=== PATIENT | male | born 1980 | race Caucasian/White ===

== ENCOUNTER → 2017-08-08 | Outpatient (CLI) | payer OTHER ==
[~2017-08-08] MED LIST: MISCCAP80 PO
[2017-08-08 18:03] LABS: ALBUMIN 4.2 gm/dl (3.4-5.0); ALT/SGPT 30 U/L (12-78); AST/SGOT 23 U/L (15-37); BLOOD UREA NITROGEN 20 mg/dl (7-18); CALCIUM 8.8 mg/dl (8.5-10.1); CARBON DIOXIDE 31 mmol/L (21-32); CREATININE 0.95 mg/dl (0.60-1.40); GLUCOSE 85 mg/dl (70-99); POTASSIUM 4.2 mmol/L (3.5-5.1); SODIUM 141 mmol/L (136-145)
[2017-08-08 18:06] LABS: ALKALINE PHOSPHATASE 72 U/L (45-117); TOTAL PROTEIN 7.3 gm/dl (6.4-8.2)
== END | disposition home or self-care (01) ==
LOC: C.LAB1850 16:51
PROVIDERS: ATTEND Neuromusculoskeletal Medicine & OMM
DX: R59.1 Generalized enlarged lymph nodes (principal)

== ENCOUNTER → 2017-11-30 | Outpatient (CLI) | payer OTHER ==
--- NOTE | 2017-11-30 15:34 | DIAGNOSTIC IMAGING REPORT ---
R EXTREMITY NONVASCULAR LIMITED CLINICAL HISTORY: 37 years-old Male presenting with R22.9 Subcutaneous nodule right lower [id number]. TECHNIQUE: Real-time grayscale ultrasound imaging of the right lower extremity was performed for a focused evaluation at the site of clinical concern. Color Doppler ultrasound imaging was also performed. COMPARISON: None. FINDINGS: At the site of clinical concern in the distal medial aspect of the right calf, and ovoid hypoechoic 0.4 x 0.5 x 0.2 cm nodule is noted. This is centered in the subcutaneous fat. The morphology resembles a lymph node. There is no hyperemia. No associated fluid. IMPRESSION: 1. Indeterminate subcentimeter nodule, which is favored to represent a benign lymph node. If there is clinical concern, follow-up ultrasound in 4-6 weeks could be obtained. Electronically signed by: Jasvir Mcdermott M.D. 11/30/2017 3:33 PM Dictated Date/Time: 11/30/2017 3:31 PM
== END | disposition home or self-care (01) ==
LOC: C.ULTR 14:46
PROVIDERS: ATTEND Surgery
DX: R22.9 Localized swelling, mass and lump, unspecified (principal)